=== PATIENT | male | born 1935 | race African-American/Black ===

== ENCOUNTER 2017-04-07 18:49 | Emergency (ER) | payer OTHER ==
[~2017-04-07] VITALS: Ht 175.3 cm; Wt 75.0 kg
[~2017-04-07 18:49] MED LIST: ATEN-42 PO; FOSI40TA2 PO; METF500T4 PO; NIFE30TA83 PO
[2017-04-07] MEDS ORDERED: ACETAMINOPHEN WITH CODEINE 300/30MG TABLET PO ONE (19:00)
[2017-04-07 23:00] VITALS: BP 123/70
== END 2017-04-07 23:05 | disposition home or self-care (01) ==
LOC: ER 18:49
DX: S80.02XA Contusion of left knee, initial encounter (principal); S80.01XA Contusion of right knee, initial encounter; E11.9 Type 2 diabetes mellitus without complications; I11.9 Hypertensive heart disease without heart failure; Z95.0 Presence of cardiac pacemaker; W06.XXXA Fall from bed, initial encounter; Y93.89 Activity, other specified; Y92.013 Bedroom of single-family (private) house as the place of occurrence of the external cause
CPT/HCPCS: 70450; 73562; 82962; 99284

== ENCOUNTER 2020-03-08 22:33 | Inpatient (IN) | payer OTHER ==
[~2020-03-08] VITALS: Ht 185.4 cm; Wt 71.7 kg
[~2020-03-08 22:33] MED LIST changes: -FOSI40TA2 PO; +FOSI40TA5 PO; +METF-414 PO; -METF500T4 PO
[2020-03-08] MEDS ORDERED: ASPIRIN 325MG TABLET PO NR (23:00)
[2020-03-08] MEDS ORDERED: HEPARIN 5000 UNITS/ML VIAL IV NR (23:00)
[2020-03-08] MEDS ORDERED: HEPARIN 5000 UNITS/ML VIAL IV ONE (23:00)
[2020-03-08] MEDS ORDERED: ASPIRIN 81MG TABLET PO ONE (23:00)
[2020-03-08 23:48] LABS: CHLORIDE 105 mEq/L (98-107)
[2020-03-08 23:51] LABS: INR 1.1; PROTHROMBIN TIME 11.4 sec (9.6-11.0)
[2020-03-09] LABS: BASOPHILS % 0.3 % (0.0-2.0); EOSINOPHILS % 0.8 % (0.0-5.0); HEMATOCRIT. 36.1 % (42.0-52.0); HEMOGLOBIN. 12.1 g/dL (14.0-18.0); LYMPHOCYTES % 8.6 % (20.0-50.0); MEAN CORPUSCULAR HEMOGLOBIN 31.4 pg (28.0-32.0); MEAN CORPUSCULAR VOLUME 93.7 fL (80.0-94.0); MEAN PLATELET VOLUME 9.2 fl (7.4-10.4); MONOCYTES % 6.3 % (2.0-8.0); PLATELET 134 x1000/uL (130-400); RED BLOOD CELL COUNT 3.85 mill/uL (4.7-6.1); RED CELL DISTRIBUTION WIDTH 13.4 % (11.6-14.6)
[2020-03-09 00:22] LABS: BG BASE EXCESS 2.2 mmol/L (-2.0-2.0); BG CARBOXYHEMOGLOBIN 0.5 % (0.5-1.5); BG DEOXYHEMOGLOBIN 0.4 % (0.0-5.0); BG FRACTION INSPIRED OXYGEN 100; BG HCO3 ACT 29.6 mmol/L (22.0-26.0); BG METHEMOGLOBIN 0.2 % (0.0-1.5); BG OXYGEN SATURATION 99.6 % (92.0-98.5); BG OXYHEMOGLOBIN 98.9 % (94.0-97.0); BG PCO2 59.5 mmHg (35.0-45.0); BG PH 7.314 (7.350-7.450); BG PO2 470.3 mmHg (75.0-100.0); BG SAMPLE SITE RIGHT RADIAL; BG TOTAL HEMOGLOBIN 11.8 g/dL (12.0-18.0); BG VENT MODE MASK - NRB
[2020-03-09] MEDS ORDERED: LABETALOL 5MG/ML SYR 20 MG/4 ML SYRINGE IV NR (00:30)
[2020-03-09 12:08] VITALS: BP 181/93
[2020-03-09 12:10] VITALS: BP 181/93
[2020-03-09] MEDS ORDERED: IPRATROPIUM/ALBUTEROL 0.5-3(2.5)MG/3ML NEB HHN PRN (13:45)
[2020-03-09] MEDS ORDERED: ACETAMINOPHEN 325MG TABLET PO PRN (13:45)
[2020-03-09] MEDS ORDERED: IPRATROPIUM/ALBUTEROL 0.5-3(2.5)MG/3ML NEB HHN SCH (14:00)
[2020-03-09] MEDS: SODIUM CHLORIDE 0.9% INJ 3ML FLUSH IVF SCH ×2 (14:00→21:38)
[2020-03-09] MEDS ORDERED: ENOXAPARIN 40MG/0.4ML SYR SUBCUT SCH (14:00)
[2020-03-09] MEDS: NIFEDIPINE XL 30MG TAB PO SCH (14:26)
[2020-03-09] MEDS: LISINOPRIL 40MG TABLET PO SCH (14:26)
[2020-03-09] MEDS: ATENOLOL 25MG TABLET PO SCH (14:27)
[2020-03-09] MEDS ORDERED: DEXTROSE 50% WATER 50ML SYRINGE IV PRN (14:30)
[2020-03-09 14:33] LABS: BG BASE EXCESS 3.9 mmol/L (-2.0-2.0); BG CARBOXYHEMOGLOBIN 0.4 % (0.5-1.5); BG DEOXYHEMOGLOBIN 8.1 % (0.0-5.0); BG HCO3 ACT 32.1 mmol/L (22.0-26.0); BG METHEMOGLOBIN 0.3 % (0.0-1.5); BG OXYGEN SATURATION 91.8 % (92.0-98.5); BG OXYHEMOGLOBIN 91.2 % (94.0-97.0); BG PCO2 65.9 mmHg (35.0-45.0); BG PH 7.305 (7.350-7.450); BG PO2 66.3 mmHg (75.0-100.0); BG SAMPLE SITE RIGHT RADIAL; BG TOTAL HEMOGLOBIN 12.8 g/dL (12.0-18.0); BG VENT MODE ROOM AIR
[2020-03-09 15:58] VITALS: BP 149/80
[2020-03-09] MEDS: BLOOD SUGAR DIAGNOSTIC STRIP TEST SCH ×2 (16:33→20:34)
[2020-03-09] MEDS: INSULIN LISPRO 100 UNITS/ML SUBCUT SCH ×2 (16:33→20:35)
[2020-03-09] MEDS: METFORMIN HCL 500MG TABLET PO SCH (17:53)
[2020-03-09 20:00] VITALS: BP 132/70
[2020-03-09] MEDS ORDERED: ATORVASTATIN CALCIUM 40MG TABLET PO SCH (21:00)
[2020-03-09] MEDS ORDERED: FAMOTIDINE 20MG TABLET PO SCH (21:00)
[2020-03-09] MEDS ORDERED: ZOLPIDEM TARTRATE 5MG TABLET PO PRN (21:00)
[2020-03-10] VITALS (7 sets, daily range): BP systolic 105–141; BP diastolic 59–72
[2020-03-10 05:27] LABS: BASOPHILS % 0.4 % (0.0-2.0); EOSINOPHILS % 0.8 % (0.0-5.0); HEMATOCRIT. 33.9 % (42.0-52.0); HEMOGLOBIN. 11.1 g/dL (14.0-18.0); LYMPHOCYTES % 15.1 % (20.0-50.0); MEAN CORPUSCULAR HEMOGLOBIN 30.8 pg (28.0-32.0); MEAN CORPUSCULAR VOLUME 94.4 fL (80.0-94.0); MEAN PLATELET VOLUME 9.2 fl (7.4-10.4); MONOCYTES % 10.3 % (2.0-8.0); NEUTROPHILS % 73.4 % (40.0-76.0); PLATELET 111 x1000/uL (130-400); RED BLOOD CELL COUNT 3.59 mill/uL (4.7-6.1); RED CELL DISTRIBUTION WIDTH 13.7 % (11.6-14.6)
[2020-03-10] MEDS: SODIUM CHLORIDE 0.9% INJ 3ML FLUSH IVF SCH ×2 (05:28→14:15)
[2020-03-10] MEDS: BLOOD SUGAR DIAGNOSTIC STRIP TEST SCH ×3 (06:41→17:12)
[2020-03-10] MEDS: INSULIN LISPRO 100 UNITS/ML SUBCUT SCH ×3 (07:19→17:53)
[2020-03-10] MEDS: NIFEDIPINE XL 30MG TAB PO SCH (08:13)
[2020-03-10] MEDS: ATENOLOL 25MG TABLET PO SCH (08:14)
[2020-03-10] MEDS: METFORMIN HCL 500MG TABLET PO SCH ×2 (08:14→17:44)
[2020-03-10] MEDS: LISINOPRIL 40MG TABLET PO SCH (08:14)
[2020-03-10] MEDS ORDERED: ASPIRIN 325MG EC TABLET PO SCH (09:00)
[2020-03-10] MEDS ORDERED: ENOXAPARIN 30MG/0.3ML SYR SUBCUT SCH (09:00)
[2020-03-10 10:45] LABS: CHLORIDE 108 mEq/L (98-107)
[2020-03-10 10:54] LABS: PHOSPHORUS 2.8 mg/dL (2.5-4.9)
[2020-03-10 16:17] LABS: CLARITY URINE CLOUDY (CLEAR); COLOR URINE YELLOW (YELLOW); KETONES URINE NEGATIVE (NEGATIVE); LEUKOCYTE ESTERASE URINE NEGATIVE (NEGATIVE); NITRITE URINE NEGATIVE (NEGATIVE); OCCULT BLOOD URINE NEGATIVE (NEGATIVE); PROTEIN URINE NEGATIVE (NEGATIVE); SPECIFIC GRAVITY URINE 1.013 (1.005-1.030)
[2020-03-12 08:11] LABS: MICROALBUMIN RANDOM URINE 33.6 ug/mL (Not Estab.)
[2020-03-15 05:10] LABS: A/G RATIO 1.1 (0.7-1.7); ALBUMIN 3.2 g/dL (2.9-4.4); ALPHA-1-GLOBULIN 0.3 g/dL (0.0-0.4); ALPHA-2-GLOBULIN 0.7 g/dL (0.4-1.0); BETA GLOBULIN 0.9 g/dL (0.7-1.3); GAMMA GLOBULINS 1.2 g/dL (0.4-1.8); M-SPIKE Not Observed g/dL (Not Observed); TOTAL PROTEIN SERUM 6.2 g/dL (6.0-8.5)
== END 2020-03-10 19:04 | disposition home or self-care (01) | DRG 190 ==
LOC: ER 22:33 → 7WST 03-09 01:19 → EDBEDREQ 03-09 01:22 → EDBEDREQSVC 03-09 01:24 → EDBEDREQTM 03-09 01:24 → EDBEDREQSVC 03-09 08:45 → ENRESERV 03-09 11:07
PROVIDERS: ADMIT Ophthalmology; ATTEND Ophthalmology
DX: J44.1 Chronic obstructive pulmonary disease with (acute) exacerbation (principal); J96.90 Respiratory failure, unspecified, unspecified whether with hypoxia or hypercapnia; I13.0 Hypertensive heart and chronic kidney disease with heart failure and stage 1 through stage 4 chronic kidney disease, or unspecified chronic kidney disease; E87.3 Alkalosis; N17.9 Acute kidney failure, unspecified; D64.9 Anemia, unspecified; E11.22 Type 2 diabetes mellitus with diabetic chronic kidney disease; E78.5 Hyperlipidemia, unspecified; I25.10 Atherosclerotic heart disease of native coronary artery without angina pectoris; I50.9 Heart failure, unspecified; N18.3 Chronic kidney disease, stage 3 (moderate); Z79.84 Long term (current) use of oral hypoglycemic drugs; Z79.899 Other long term (current) drug therapy; Z80.52 Family history of malignant neoplasm of bladder; Z82.49 Family history of ischemic heart disease and other diseases of the circulatory system; Z85.46 Personal history of malignant neoplasm of prostate; Z86.73 Personal history of transient ischemic attack (TIA), and cerebral infarction without residual deficits; Z86.79 Personal history of other diseases of the circulatory system; Z87.891 Personal history of nicotine dependence; Z95.1 Presence of aortocoronary bypass graft; Z95.810 Presence of automatic (implantable) cardiac defibrillator; Z03.818 Encounter for observation for suspected exposure to other biological agents ruled out; N28.9 Disorder of kidney and ureter, unspecified
CPT/HCPCS: 36415; 36600; 71045; 76770; 80053; 80061; 81003; 82043; 82375; 82570; 82805; 82962; 83036; 83735; 83880; 84100; 84155; 84165; 84300; 84443; 84484; 85025; 87635; 93005; 99291; J1644; J1650; J1815; J3490